=== PATIENT | male | born 1995 | race Caucasian/White ===

== ENCOUNTER 2023-01-16 23:09 | Emergency (ER) | payer OTHER ==
[~2023-01-16] VITALS: Ht 170.2 cm; Wt 70.3 kg
[2023-01-16 23:20] VITALS: BP 141/84; PULSE 92; RESP 16; TEMP 98.5; O2SAT 99
--- NOTE | 2023-01-16 23:20 | NUR ---
Pt got bitten by his own dog
--- NOTE | 2023-01-16 23:20 | NUR ---
TO BED VIA W/C
--- NOTE | 2023-01-16 23:25 | NUR ---
Bharti at the bedside
--- NOTE | 2023-01-16 23:36 | NUR ---
DR is examing the patient
[2023-01-16] MEDS ORDERED: BACITRACIN OINT 500 UNITS/GM PKT TP ONE (23:40)
[2023-01-16] MEDS ORDERED: KETOROLAC 60 MG/2 ML VIAL IM ONE (23:40)
[2023-01-16] MEDS ORDERED: cefTRIAXone 1,000 MG in LIDOCAINE MPF 1% 2.1 ML IM ONE (23:40)
[2023-01-16] MEDS ORDERED: LIDOCAINE MPF 1% 5 ML ONE (23:44)
[2023-01-16] MEDS ORDERED: cefTRIAXone 1,000 MG VIAL ONE (23:44)
--- NOTE | 2023-01-16 23:54 | NUR ---
irrigated wound to L ARM, applied bacitracin, dressed wound.
[2023-01-17] MEDS ORDERED: AMOX1TAB8 PO (00:14)
[2023-01-17] MEDS ORDERED: NAPR-54 PO (00:14)
[2023-01-17 00:25] VITALS: BP 135/81; PULSE 92; RESP 16; TEMP 98.5; O2SAT 99
--- NOTE | 2023-01-17 00:27 | NUR ---
Patient discharged with v/s stable. Written and verbal after care instructions given and explained. Patient alert, oriented and verbalized understanding of instructions. Ambulatory with steady gait. All questions addressed prior to discharge. ID band removed. Patient advised to follow up with PMD. Rx of amox, naproxen given. Patient educated on indication of medication including possible reaction and side effects. Opportunity to ask questions provided and answered.
== END 2023-01-17 00:20 | disposition home or self-care (01) ==
LOC: MED 23:09
DX: S51.832A Puncture wound without foreign body of left forearm, initial encounter (principal); W54.0XXA Bitten by dog, initial encounter; Y93.89 Activity, other specified; Y92.89 Other specified places as the place of occurrence of the external cause; Y99.8 Other external cause status
CPT/HCPCS: 90471; 90715; 96372; 99284; J0696; J1885; J2001